=== PATIENT | female | born 1955 | race Caucasian/White ===

== ENCOUNTER → 2017-11-07 | Outpatient (CLI) | payer OTHER ==
[2016-10-28 21:40] VITALS: BP 130/63
--- NOTE | 2017-11-07 16:08 | MG ---
HISTORY: SCREENING Comparison: July 29, 2014 and November 06, 2016 FINDINGS: Bilateral CC and MLO projections of the right and left breast were obtained. Scattered fibroglandula r tissue is seen to be present without significant interval change. No suspicious architectural dist ortion, mass or clustered microcalcifications can be observed to suggest malignancy. No skin thicken ing or nipple retraction is appreciated. No pathological lymphadenopathy can be identified. Benign- appearing calcifications are noted within the right and left breast. IMPRESSION: NO RADIOGRAPHIC EVIDENCE OF MALIGNANCY. ACR CATEGORY 2 - benign findings. FOLLOW-UP EXAM 1 YEAR. Diagnostic CAD was utilized and reviewed. * 0 (ZERO) - ASSESSMENT INCOMPLETE; ADDITIONAL IMAGING IS NEEDED. * 1/1 (ONE) - NEGATIVE. * 2/II (TWO) - BENIGN FINDINGS. * 3/III (THREE) - PROBABLY BENIGN FINDING; SHORT INTERVAL FOLLOW-UP SUGGESTED. * 4/IV (FOUR) - SUSPICIOUS ABNORMALITY; BIOPSY SHOULD BE CONSIDERED. * 5/V - HIGHLY SUSPICIOUS OF MALIGNANCY; BIOPSY SHOULD BE PERFORMED. A NEGATIVE X-RAY REPORT SHOULD NOT DELAY BIOPSY IF A DOMINANT OR CLINICALLY SUSPICIOUS MASS IS PRESENT; 4 TO 8 PERCENT OF CANCERS ARE NOT IDENTIFIED BY X-RAY. A NEGA TIVE REPORT MAY REINFORCE THE CLINICAL IMPRESSION. ADENOSIS AND DENSE BREASTS MAY OBSCURE AN UNDERLY ING NEOPLASM. Reported By:
== END ==
LOC: RAD 10:37
PROVIDERS: ATTEND Internal Medicine
DX: Z12.31 Encounter for screening mammogram for malignant neoplasm of breast (principal)
CPT/HCPCS: 77067

== ENCOUNTER 2023-04-01 18:43 | Observation (INO) ==
--- NOTE | 2023-04-01 19:15 | EKG ---
Test Reason : cp Blood Pressure : */* mmHG Vent. Rate : 87 BPM Atrial Rate : 87 BPM P-R Int : 140 ms QRS Dur : 88 ms QT Int : 414 ms P-R-T Axes : 31 62 43 degrees QTc Int : 498 ms Normal sinus rhythm with sinus arrhythmia Prolonged QT Abnormal ECG No previous ECGs available Confirmed by Roberto Callejas ([id number]) on 04/03/2023 8:02:19 AM Referred By: Confirmed By: Roberto Callejas
--- NOTE | 2023-04-01 19:24 | DR.CP ---
HPI <Bernabe Sundar - Last Filed: 04/01/23 19:27> Time Seen Time Seen by Provider: 04/01/23 19:23 PCP Primary Care Physician: ITZ FONSECA Comment HPI Comment: c/o chest pain on rt side x 1 day intermittent no assoc diaphoresis or nausea or sob pt states she has hx of chf no pain in ER Complaint Chief Complaint:: PT COMPLAING OF CHEST PAIN SINCE AM, STATES AT TIMES IT FEELS LIKE INDGESTION BUT SHE CAN'T GET RID OF THE PAIN. PT DENIES AND RADIATING, NUMBNESS OR TINGLING. 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 Past Surgical History Comment: OVARIAN CYST REMOVAL Family History History of Family Medical Conditions: Yes Family Medical History: Diabetes Mellitus and Hypertension Social History Do you use any recreational Drugs:: No Travel Risk Coronavirus risk:travel/contact w/high risk person: No Has patient experienced Coronavirus symptoms: Yes Coronavirus symptoms experienced: Shortness of Breath Infectious screening Have you traveled outside the country in the last 6 months?: No Isolation: Standard ROS <Bernabe Carneylander Last Filed: 04/01/23 19:27> Review of Systems Respiratoy: No Symptoms Reported Cardiovascular: Chest Pain Gastrointestinal/Abdominal: No Symptoms Reported Genitourinary: No Symptoms Reported Musculoskeletal: No Symptoms Reported Integumentary: No Symptoms Reported All Other Systems: Reviewed and Negative PE <Bernabe Sundar Last Filed: 04/01/23 19:27> Vitals Vitals: Vital Signs Temperature 98.5 F Pulse Rate [Left Brachial] 82 Pulse Rate 103 Respiratory Rate 18 Respiratory Rate 20 Blood Pressure [Left Arm] 100/53 Blood Pressure 118/59 O2 Sat by Pulse Oximetry 98 O2 Sat by Pulse Oximetry 95 General General Appearance: In No Apparent Distress Head Head Exam: Normal Inspection Eyes Eye exam: Normal Appearance ENT ENT Exam: Normal Exam Chest Chest Inspection: Normal Inspection Respiratory Respiratory Exam: Normal Lung Sounds Bilat Cardiovascular Cardiovascular Exam: Regular Rate, Normal Rhythm and Normal Heart Sounds Abdominal Exam Abdominal Exam: Normal Bowel Sounds, Soft and Other (obese) Extremities Extremities Exam: Normal Inspection and Other (=1 edema mild ) Back Back Exam: Normal Inspection Psychiatric Psychiatric Exam: Normal Affect and Normal Mood <Jonathan Lai - Last Filed: 04/01/23 22:05> Vitals Vitals: Vital Signs Temperature 98.5 F Pulse Rate [Left Brachial] 82 Pulse Rate 103 Respiratory Rate 18 Respiratory Rate 20 Blood Pressure [Left Arm] 100/53 Blood Pressure 118/59 O2 Sat by Pulse Oximetry 98 O2 Sat by Pulse Oximetry 95 MDM <Bernabe Carneylander - Last Filed: 04/01/23 19:27> Differential Diagnosis Differential Diagnosis: Angina, Chest Wall Pain, CHF and Myocardial Infarction <Jonathan Lai - Last Filed: 04/01/23 22:05> Treatment Treatment: 2117 - 67 y/o female presents with chest pain, initially evaluated by Dr Kwok, signed over to me. Pt feeling better, having slight chest di scomfort, in no distress. Labs show normal troponin. Has an elevated BUN/Cr, last year number better. Admits to not eating , drinking well lately. D-dimer elvated, 2.08. Unable to do CTA at this time due to poor renal function. Recommend observation admission, will give SC lovenox for coverage. Follow troponin level, and attempt CTA in am if renal nnumbers better after IV hydration. Pt ok with game plan, will discuss with Dr Taylor. ROR <Bernabe Sundar - Last Filed: 04/01/23 19:27> Labs Reviewed 04/01/23 19:14 04/01/23 19:14 Laboratory: WBC 15.9 X10^3/uL (3.6-10.0) H 04/01/23 19:14 RBC 4.30 X10^6/uL (3.5-5.4) 04/01/23 19:14 Hgb 11.7 g/dL (12.0-16.0) L 04/01/23 19:14 Hct 36.2 % (36.0-47.0) 04/01/23 19:14 MCV 84.3 fL (80.0-100.0) 04/01/23 19:14 MCH 27.2 pg (27.0-34.0) 04/01/23 19:14 MCHC 32.3 g/dL (33.0-35.0) L 04/01/23 19:14 RDW 13.4 % (11.6-16.5) 04/01/23 19:14 Plt Count 303 X10^3/uL (150.0-450.0) 04/01/23 19:14 MPV 9.5 fL (7.4-11.0) 04/01/23 19:14 Neut % (Auto) 63.9 % (42.0-75.0) 04/01/23 19:14 Lymph % (Auto) 24.5 % (21.0-51.0) 04/01/23 19:14 [place] % (Auto) 8.8 % (0.0-13.0) 04/01/23 19:14 Eos % (Auto) 2.0 % (0.9-2.9) 04/01/23 19:14 Baso % (Auto) 0.8 % (0.2-1.0) 04/01/23 19:14 Neut # (Auto) 10.2 x10^3/uL (2.2-4.8) H 04/01/23 19:14 Lymph # (Auto) 3.9 X10^3/uL (1.3-2.9) H 04/01/23 19:14 [place] # (Auto) 1.4 x10^3/uL (0.3-0.8) H 04/01/23 19:14 Eos # (Auto) 0.3 x10^3/uL (0.0-0.2) H 04/01/23 19:14 Baso # (Auto) 0.1 X10^3/uL (0.0-0.1) 04/01/23 19:14 Absolute Nucleated RBC 0.0 /100WBC 04/01/23 19:14 D-Dimer 2.08 ug/ml (0.0-0.57) H 04/01/23 19:14 Sodium 138 mmol/L (136-145) 04/01/23 19:14 Corrected Sodium TNP 04/01/23 19:14 Potassium 3.5 mmol/L (3.5-5.1) 04/01/23 19:14 Chloride 102 mmol/L (98-107) 04/01/23 19:14 Carbon Dioxide 27.8 mmol/L (21-32) 04/01/23 19:14 BUN 22 mg/dL (7-18) H 04/01/23 19:14 Creatinine 2.53 mg/dL (0.55-1.02) H 04/01/23 19:14 Est GFR (MDRD) Af Amer 24 (>60) L 04/01/23 19:14 Est GFR (MDRD) Non-Af 20 (>60) L 04/01/23 19:14 Glucose 105 mg/dL (65-99) H 04/01/23 19:14 Calcium 8.7 mg/dL (8.5-10.1) 04/01/23 19:14 Corrected Calcium TNP 04/01/23 19:14 Total Bilirubin 0.40 mg/dL (0.2-1.0) 04/01/23 19:14 AST 18 Units/L (15-37) 04/01/23 19:14 ALT 11 Units/L (12-78) L 04/01/23 19:14 Alkaline Phosphatase 137 Units/L (46-116) H 04/01/23 19:14 Creatine Kinase 109 Units/L (26-192) 04/01/23 19:14 Troponin I High Sens 7.5 ng/L (4.0-60.0) 04/01/23 19:14 B-Natriuretic Peptide 16.9 pg/mL (0-79) 04/01/23 19:14 Total Protein 8.3 g/dL (6.4-8.2) H 04/01/23 19:14 Albumin 3.5 g/dL (3.4-5.0) 04/01/23 19:14 Globulin 4.8 g/dL (2.5-4.5) H 04/01/23 19:14 Albumin/Globulin Ratio 0.7 Ratio (1.1-2.1) L 04/01/23 19:14 SARS-CoV-2 (PCR) Negative (NEGATIVE) 04/01/23 19:05 Influenza Type A (PCR) Negative (NEGATIVE) 04/01/23 19:05 Influenza Type B (PCR) Negative (NEGATIVE) 04/01/23 19:05 RSV (PCR) Negative (NEGATIVE) 04/01/23 19:05 <Jonathan Lai - Last Filed: 04/01/23 22:05> Labs Reviewed Laboratory: WBC 15.9 X10^3/uL (3.6-10.0) H 04/01/23 19:14 RBC 4.30 X10^6/uL (3.5-5.4) 04/01/23 19:14 Hgb 11.7 g/dL (12.0-16.0) L 04/01/23 19:14 Hct 36.2 % (36.0-47.0) 04/01/23 19:14 MCV 84.3 fL (80.0-100.0) 04/01/23 19:14 MCH 27.2 pg (27.0-34.0) 04/01/23 19:14 MCHC 32.3 g/dL (33.0-35.0) L 04/01/23 19:14 RDW 13.4 % (11.6-16.5) 04/01/23 19:14 Plt Count 303 X10^3/uL (150.0-450.0) 04/01/23 19:14 MPV 9.5 fL (7.4-11.0) 04/01/23 19:14 Neut % (Auto) 63.9 % (42.0-75.0) 04/01/23 19:14 Lymph % (Auto) 24.5 % (21.0-51.0) 04/01/23 19:14 [place] % (Auto) 8.8 % (0.0-13.0) 04/01/23 19:14 Eos % (Auto) 2.0 % (0.9-2.9) 04/01/23 19:14 Baso % (Auto) 0.8 % (0.2-1.0) 04/01/23 19:14 Neut # (Auto) 10.2 x10^3/uL (2.2-4.8) H 04/01/23 19:14 Lymph # (Auto) 3.9 X10^3/uL (1.3-2.9) H 04/01/23 19:14 [place] # (Auto) 1.4 x10^3/uL (0.3-0.8) H 04/01/23 19:14 Eos # (Auto) 0.3 x10^3/uL (0.0-0.2) H 04/01/23 19:14 Baso # (Auto) 0.1 X10^3/uL (0.0-0.1) 04/01/23 19:14 Absolute Nucleated RBC 0.0 /100WBC 04/01/23 19:14 D-Dimer 2.08 ug/ml (0.0-0.57) H 04/01/23 19:14 Sodium 138 mmol/L (136-145) 04/01/23 19:14 Corrected Sodium TNP 04/01/23 19:14 Potassium 3.5 mmol/L (3.5-5.1) 04/01/23 19:14 Chloride 102 mmol/L (98-107) 04/01/23 19:14 Carbon Dioxide 27.8 mmol/L (21-32) 04/01/23 19:14 BUN 22 mg/dL (7-18) H 04/01/23 19:14 Creatinine 2.53 mg/dL (0.55-1.02) H 04/01/23 19:14 Est GFR (MDRD) Af Amer 24 (>60) L 04/01/23 19:14 Est GFR (MDRD) Non-Af 20 (>60) L 04/01/23 19:14 Glucose 105 mg/dL (65-99) H 04/01/23 19:14 Calcium 8.7 mg/dL (8.5-10.1) 04/01/23 19:14 Corrected Calcium TNP 04/01/23 19:14 Total Bilirubin 0.40 mg/dL (0.2-1.0) 04/01/23 19:14 AST 18 Units/L (15-37) 04/01/23 19:14 ALT 11 Units/L (12-78) L 04/01/23 19:14 Alkaline Phosphatase 137 Units/L (46-116) H 04/01/23 19:14 Creatine Kinase 109 Units/L (26-192) 04/01/23 19:14 Troponin I High Sens 7.5 ng/L (4.0-60.0) 04/01/23 19:14 B-Natriuretic Peptide 16.9 pg/mL (0-79) 04/01/23 19:14 Total Protein 8.3 g/dL (6.4-8.2) H 04/01/23 19:14 Albumin 3.5 g/dL (3.4-5.0) 04/01/23 19:14 Globulin 4.8 g/dL (2.5-4.5) H 04/01/23 19:14 Albumin/Globulin Ratio 0.7 Ratio (1.1-2.1) L 04/01/23 19:14 SARS-CoV-2 (PCR) Negative (NEGATIVE) 04/01/23 19:05 Influenza Type A (PCR) Negative (NEGATIVE) 04/01/23 19:05 Influenza Type B (PCR) Negative (NEGATIVE) 04/01/23 19:05 RSV (PCR) Negative (NEGATIVE) 04/01/23 19:05 Opioid <Bernabe Kwok - Last Filed: 04/01/23 19:27> Opioid Risk Tool Age (Volodymyr box if 16-45): No History of Preadolescent Sexual Abuse: No Total: 0 Total Score Risk Category: Low Risk Copyright: Paco BAUM predicting aberrant behaviors <Jonathan Lai - Last Filed: 04/01/23 22:05> Opioid Risk Tool Total: 0 Total Score Risk Category: Low Risk Discharge Plan Diagnosis Discharge Problem: Chest pain Discharge Plan Patient Disposition: ADMITTED INPATIENT Condition: Stable Orders to Discharge Patient Discharge Orders: Transfer (Routine); Ordered 04/01/23 Ordered By: Jonathan Lai
[2023-04-01 19:25] LABS: RED CELL DISTRIBUTION WIDTH 13.4 % (11.6-16.5)
[2023-04-01 19:29] LABS: BASOPHILS # (AUTO) 0.1 X10^3/uL (0.0-0.1); BASOPHILS % (AUTO) 0.8 % (0.2-1.0); EOSINOPHILS # (AUTO) 0.3 x10^3/uL (0.0-0.2); HEMATOCRIT 36.2 % (36.0-47.0); HEMOGLOBIN 11.7 g/dL (12.0-16.0); LYMPHOCYTES # (AUTO) 3.9 X10^3/uL (1.3-2.9); LYMPHOCYTES % (AUTO) 24.5 % (21.0-51.0); MEAN CORPUSCULAR HEMOGLOBIN 27.2 pg (27.0-34.0); MEAN CORPUSCULAR HGB CONC 32.3 g/dL (33.0-35.0); MEAN CORPUSCULAR VOLUME 84.3 fL (80.0-100.0); MEAN PLATELET VOLUME 9.5 fL (7.4-11.0); MONOCYTES # (AUTO) 1.4 x10^3/uL (0.3-0.8); MONOCYTES % (AUTO) 8.8 % (0.0-13.0); NEUTROPHILS # (AUTO) 10.2 x10^3/uL (2.2-4.8); NEUTROPHILS % (AUTO) 63.9 % (42.0-75.0); PLATELET COUNT 303 X10^3/uL (150.0-450.0); WHITE BLOOD COUNT 15.9 X10^3/uL (3.6-10.0)
[2023-04-01] MEDS ORDERED: ASPIRIN 81 MG CHEWTAB PO ONE (19:30)
[2023-04-01] MEDS ORDERED: ASPIRIN 81 MG CHEWTAB ONE (19:31)
[2023-04-01] MEDS ORDERED: CARAFATE ONE (19:31)
[2023-04-01] MEDS ORDERED: CARAFATE PO ONE (19:36)
[2023-04-01 19:39] LABS: ALANINE AMINOTRANSFERASE 11 Units/L (12-78); ALBUMIN 3.5 g/dL (3.4-5.0); ALKALINE PHOSPHATASE 137 Units/L (46-116); ASPARTATE AMINO TRANSFERASE 18 Units/L (15-37); BLOOD UREA NITROGEN 22 mg/dL (7-18); CALCIUM 8.7 mg/dL (8.5-10.1); CARBON DIOXIDE 27.8 mmol/L (21-32); CHLORIDE 102 mmol/L (98-107); CREATINE KINASE 109 Units/L (26-192); CREATININE 2.53 mg/dL (0.55-1.02); GLUCOSE 105 mg/dL (65-99); POTASSIUM 3.5 mmol/L (3.5-5.1); SODIUM 138 mmol/L (136-145); TOTAL PROTEIN 8.3 g/dL (6.4-8.2); eGFR NON BLACK RACES 20 (>60)
--- NOTE | 2023-04-01 20:38 | RAD ---
HISTORYchest pain, onset this AMSTUDYCHEST, 1 [facility] 2021TECHNIQUEChest radiographic imaging, AP portable projection, 1 imageFINDINGSNo cardiomegaly.No focal airspace disease.No pleural effusion.No pneumothorax.No acute osseous abnormality.IMPRESSIONNo imaging findings of acute cardiopulmonary disease.Electronically signed by: hCris Marin (Apr 01, 2023 20:36:50)
[2023-04-01] MEDS ORDERED: NS 1,000 ML IV 500 ML IV ONE (20:49)
[2023-04-01] MEDS ORDERED: NS 1,000 ML IV 1,000 ML ONE (20:50)
[2023-04-01] MEDS ORDERED: CARAFATE ORAL SUSP PO SCH (21:00)
[2023-04-01] MEDS ORDERED: CONSULT PHARMACY - POTASSIUM & MAGNESIUM XX SCH (22:09)
[2023-04-01] MEDS ORDERED: MORPHINE SULFATE INJ 4 MG IVP PRN (22:09)
[2023-04-01] MEDS ORDERED: TYLENOL 500 MG TAB EXTRA STRENGTH PO PRN (22:09)
[2023-04-01] MEDS: D5 1/2 NS 1,000 ML 1,000 ML IV SCH (22:32)
[2023-04-01 22:44] VITALS: BMI 39.3
[2023-04-01] MEDS: LOVENOX INJ 100 MG SYR SC SCH (22:52)
[2023-04-01] MEDS ORDERED: K-DUR TAB 20 MEQ PO SCH (23:00)
[2023-04-02] MEDS: D5 1/2 NS 1,000 ML 1,000 ML IV SCH ×2 (01:47→14:20)
[2023-04-02 05:14] LABS: BASOPHILS # (AUTO) 0.2 X10^3/uL (0.0-0.1); BASOPHILS % (AUTO) 1.2 % (0.2-1.0); EOSINOPHILS # (AUTO) 0.4 x10^3/uL (0.0-0.2); EOSINOPHILS % (AUTO) 2.9 % (0.9-2.9); HEMATOCRIT 33.8 % (36.0-47.0); LYMPHOCYTES # (AUTO) 3.2 X10^3/uL (1.3-2.9); LYMPHOCYTES % (AUTO) 23.2 % (21.0-51.0); MEAN CORPUSCULAR HEMOGLOBIN 27.1 pg (27.0-34.0); MEAN CORPUSCULAR HGB CONC 32.4 g/dL (33.0-35.0); MEAN CORPUSCULAR VOLUME 83.4 fL (80.0-100.0); MEAN PLATELET VOLUME 10.1 fL (7.4-11.0); MONOCYTES # (AUTO) 1.2 x10^3/uL (0.3-0.8); MONOCYTES % (AUTO) 8.3 % (0.0-13.0); NEUTROPHILS % (AUTO) 64.4 % (42.0-75.0); PLATELET COUNT 291 X10^3/uL (150.0-450.0); RED BLOOD COUNT 4.06 X10^6/uL (3.5-5.4); RED CELL DISTRIBUTION WIDTH 13.3 % (11.6-16.5); WHITE BLOOD COUNT 13.9 X10^3/uL (3.6-10.0)
[2023-04-02 05:25] LABS: CALCIUM 8.2 mg/dL (8.5-10.1); CARBON DIOXIDE 26.6 mmol/L (21-32); CREATININE 1.9 mg/dL (0.55-1.02); MAGNESIUM 2.3 mg/dL (2.0-2.9); POTASSIUM 3.6 mmol/L (3.5-5.1); TOTAL PROTEIN 7.4 g/dL (6.4-8.2)
[2023-04-02] MEDS ORDERED: CONSULT PHARMACY - POTASSIUM & MAGNESIUM XX SCH (06:00)
[2023-04-02] MEDS ORDERED: K-DUR TAB 20 MEQ PO SCH (06:00)
[2023-04-02] MEDS: LOVENOX INJ 100 MG SYR SC SCH (09:24)
--- NOTE | 2023-04-02 18:23 | DR.H&P ---
H&P - History & Physical for Day of: H&P Date: 04/01/23 - Chief Complaint Chief Complaint: CHEST PAIN - History of Present Illness History of Present Illness: IS A 67 YEAR OLD PATIENT OF OURS. SHE PRESENTED TO THE ER WITH COMPLAINTS OF RIGHT SIDED CHEST PAIN X 1 DAY. PATIENT REPORTS THAT PAIN FEELS LIKE HEARTBURN OR INDIGESTION, BUT NOTHING SHE DOES MAKES THE PAIN GO AWAY. SHE REPORTS THAT PAIN IS INTERMITTENT. SHE RATES IT A 4/10 ON ADMISSION. SHE DENIES RADIATNG, NUMBNESS, OR TINGLING. SHE HAS A PMH OF CHF, HTN, OVARIAN CYST REMOVAL. ON ARRIVAL TO THE HOSPITAL, HER VITALS WERE: 98.5-103-20-95%-118/59. LABS WERE OBTAINED. WBC 15.9, RBC 4.30, HGB 11.7, HCT 36.2, PLT COUNT 303, D-DIMER 2.08, SODIUM 138, POTASSIUM 3.5, CHLORIDE 102, CARBON DIOXIDE 27.8, BUN 22, CREATININE 2.53, GLUCOSE 105, CALCIUM 8.7, AST 18, ALT 11, ALK PHOS 137, CREATINE KINASE 109, TROPONIN 7.5, BNP 16.9, TOTAL PROTEIN 8.3, ALBUMIN 3.5. COVID, INFLUENZA, AND RSV WERE NEGATIVE. A CHEST XRAY WAS OBTAINED AND REVEALED: No imaging findings of acute cardiopulmonary disease. EKG REVEALED NORMAL SINUS RHYTHM WITH SINUS ARRHYTHMIA. HR 87 BPM. IN THE ER, SHE WAS GIVEN ASPIRIN 324MG PO X 1, CARAFATE 1G PO X 1, A NORMAL SALINE 1 LITER BOLUS, K-DUR 20MEQ PO X 1. SHE WAS ADMITTED TO THE HOSPITAL OBSERVATION STATUS FOR FURTHER EVALUATION AND TREATMENT OF CHEST PAIN RULE OUT ACUTE AL, VOLUME DEPLETION, ELEVATED D-DIMER. SHE WAS STARTED ON D51/2 NS AT 80 ML/HR, LOVENOX 100MG SC DAILY, MORPHINE SULFATE 4MG IV Q4H PRN, AND TYLENOL 1000MG PO Q6H PRN. OTHERWISE, WE WILL FOLLOW UP WITH AM LABS AND CONTINUE TO MONITOR. TIME SPENT ON CLINICAL ASSESSMENT, REVIEWING LABS AND IMAGING, DECISION MAKING, AND DOCUMENTATION GREATER THAN 75 MINUTES. 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 - Family History Family Medical History: Diabetes Mellitus, Cancer, Hypertension - Social History Does any household member use tobacco: No Alcohol Use: None Drug Use: None - Review of Systems Constitutional: Weakness Eyes: No Symptoms Reported ENT: No Symptoms Reported Respiratory: SOB with Excertion Cardiovascular: Chest Pain Gastrointestinal: No Symptoms Reported Genitourinary: No Symptoms Reported Musculoskeletal: No Symptoms Reported Skin: No Symptoms Reported Neurological: Weakness - Physical Exam Vital Signs: Vital Signs Temperature 98.2 F Temperature 97.8 F Pulse Rate [Left Brachial] 83 Pulse Rate [Left Brachial] 74 Respiratory Rate 20 Respiratory Rate 20 Blood Pressure [Left Arm] 115/73 Blood Pressure [Left Arm] 113/58 O2 Sat by Pulse Oximetry 96 O2 Sat by Pulse Oximetry 96 Oriented: Normal Eyes: Normal Ear: Normal Nose: Normal Throat: Normal Respiratory: Diminished Throughout Cardiovascular: Normal : Normal Auscultation: Bowel Sounds: Normal Palpation: Normal Tenderness: Normal Skin: Decreased [place] Musculoskeletal: Normal Psychiatric: Normal Mood Description: Calm Affect: Normal Speech Pattern: Clear - Assessment/Plan (1) Chest pain, rule out acute myocardial infarction Status: Acute Plan: ADMIT, REPEAT CARDIAC ENZYMES AND EKGS, SUPPLEMENTAL OXYGEN, D51/2 NS AT 80 ML/HR, LOVENOX 100MG SC DAILY, MORPHINE SULFATE 4MG IV Q4H PRN, AND TYLENOL 1000MG PO Q6H PRN. MONITOR DAILY LABS (2) Dehydration Status: Acute Plan: IV FLUIDS (3) Elevated d-dimer Status: Acute Plan: OBTAIN CHEST CTA TO RULE OUT PE WHEN KIDNEY FUNCTION IS BETTER (4) HTN (hypertension) Qualifiers: Hypertension type: primary hypertension Qualified Code(s): I10 - Essential (primary) hypertension Status: Chronic - Allergies Allergies/Adverse Reactions: Allergies Allergy/AdvReac Type Severity Reaction Status Date / Time No Known Drug Allergies Allergy Verified 06/08/20 11:01
[2023-04-03] MEDS: D5 1/2 NS 1,000 ML 1,000 ML IV SCH ×2 (01:22→13:08)
[2023-04-03] MEDS ORDERED: MAALOX or MYLANTA PO PRN (04:17)
[2023-04-03] MEDS: LOVENOX INJ 100 MG SYR SC SCH (08:51)
[2023-04-03 08:59] LABS: BASOPHILS # (AUTO) 0.1 X10^3/uL (0.0-0.1); EOSINOPHILS # (AUTO) 0.3 x10^3/uL (0.0-0.2); EOSINOPHILS % (AUTO) 3.3 % (0.9-2.9); HEMATOCRIT 35.3 % (36.0-47.0); HEMOGLOBIN 11.3 g/dL (12.0-16.0); LYMPHOCYTES # (AUTO) 2.6 X10^3/uL (1.3-2.9); LYMPHOCYTES % (AUTO) 25.7 % (21.0-51.0); MEAN CORPUSCULAR HEMOGLOBIN 27.1 pg (27.0-34.0); MEAN CORPUSCULAR HGB CONC 32.1 g/dL (33.0-35.0); MEAN CORPUSCULAR VOLUME 84.3 fL (80.0-100.0); MEAN PLATELET VOLUME 9.9 fL (7.4-11.0); MONOCYTES # (AUTO) 0.7 x10^3/uL (0.3-0.8); MONOCYTES % (AUTO) 6.6 % (0.0-13.0); NEUTROPHILS # (AUTO) 6.5 x10^3/uL (2.2-4.8); NEUTROPHILS % (AUTO) 63.4 % (42.0-75.0); PLATELET COUNT 268 X10^3/uL (150.0-450.0); RED BLOOD COUNT 4.19 X10^6/uL (3.5-5.4); RED CELL DISTRIBUTION WIDTH 13.4 % (11.6-16.5); WHITE BLOOD COUNT 10.2 X10^3/uL (3.6-10.0)
[2023-04-03 09:30] LABS: BLOOD UREA NITROGEN 13 mg/dL (7-18); CARBON DIOXIDE 39.5 mmol/L (21-32); CHLORIDE 99 mmol/L (98-107); COR NA(FOR HYPERGLY) 141 mmol/L (136-145); CREATININE 0.98 mg/dL (0.55-1.02); GLUCOSE 181 mg/dL (65-99); POTASSIUM 4.5 mmol/L (3.5-5.1); SODIUM 139 mmol/L (136-145); eGFR NON BLACK RACES 60 (>60)
[2023-04-03 09:43] LABS: ALANINE AMINOTRANSFERASE 9 Units/L (12-78); ALBUMIN 3.1 g/dL (3.4-5.0); ALKALINE PHOSPHATASE 126 Units/L (46-116); ASPARTATE AMINO TRANSFERASE 18 Units/L (15-37); COR CA(FOR HYPOALB) 9.7 mg/dL (8.5-10.1); TOTAL PROTEIN 7.8 g/dL (6.4-8.2)
[2023-04-03] MEDS ORDERED: OMNIPAQUE 350 mg/mL 100 mL BTL 100 ML ONE (11:32)
--- NOTE | 2023-04-03 12:25 | PCM.PROG ---
Progress Note - Progress Note for Day of Date of Exam: 04/03/23 - Subjective Subjective: IS CURRENTLY OBSERVATION STATUS FOR TREATMENT OF CHEST PAIN RULE OUT ACUTE CT, DEHYDRATION, ELEVATED D-DIMER, AND HTN. TODAY, PATIENT IS ALERT AND ORIENTED, SITTING ON THE SIDE OF THE BED ON MORNING ROUNDS. SHE CONTINUES TO COMPLAIN OF INTERMITTENT CHEST PAIN THIS MORNING. SHE ALSO COMPLAINS OF SHORTNESS OF BREATH AT TIMES. SOB HAS BEEN WORSE ON EXERTION. NURSING STAFF REPORTS THAT SHE HAS HAD AN UNEVENTFUL NIGHT. ON EXAMINATION TODAY, HEART IS REGULAR IN RATE AND RHYTHM. BILATERAL LUNGS ARE NOTED WITH DIMINISHED LUNG SOUNDS THROUGHOUT. ABDOMEN IS ROUND, SOFT, AND NON-TENDER WITH NORMAL BOWEL SOUNDS NOTED IN ALL QUADRANTS. GOOD MOVEMENT NOTED TO UPPER AND LOWER EXTREMITIES. HER VITALS THIS MORNING ARE: 97.5-88-18-97%-140/62. LABS WERE OBTAINED. WBC 10.2, RBC 4.19, HGB 11.3, HCT 35.3, PLT COUNG 268, SODIUM 139, POTASSIUM 4.5, CHLORIDE 99, CARBON DIOXIDE 39.5, BUN 13, CREATININE 0.98, GLUCOSE 181, CALCIUM 9.0, AST 18, ALT 9, ALK PHOS 126, TOTAL PROTEIN 7.8, ALBUMIN 3.1. SHE IS CURRENTLY RECEIVING D51/2 NS AT 80 ML/HR, LOVENOX 100MG SC DAILY, MORPHINE SULFATE 4MG IV Q4H PRN, AND TYLENOL 1000MG PO Q6H PRN. WE WILL OBTAIN A CHEST CTA TO RULE OUT PE THIS MORNING. OTHERWISE, WE WILL FOLLOW UP WITH AM LABS AND CONTINUE TO MONITOR. TIME SPENT ON CLINICAL ASSESSMENT, REVIE WING LABS AND IMAGING, DECISION MAKING, AND DOCUMENTATION GREATER THAN 45 MINUTES. - Past Medical Family Social History Past Med/Fam/Surg Hx: No changes since H&P Allergies: Allergies No Known Drug Allergies Allergy (Verified 06/08/20 11:01) - Review of Systems ROS: No change since H&P - Vital Signs and I&O's Vital Signs: Vital Signs Temperature 97.5 F Pulse Rate [Left Brachial] 88 Respiratory Rate 18 Blood Pressure [Right Arm] 140/62 O2 Sat by Pulse Oximetry 97 Intake and Output: Intake & Output 04/01/23 04/02/23 04/03/23 04/04/23 11:59 11:59 11:59 11:59 Intake Total 1485 / 1485 2800 / 2800 Balance 1485 / 1485 2800 / 2800 - Physical Exam Oriented: Normal Eyes: Normal Ear: Normal Nose: Normal Throat: Normal Respiratory: Generalized, Diminished Cardiovascular: Normal : Normal Auscultation: Bowel Sounds: Normal Palpation: Normal Tenderness: Normal Skin: Normal Musculoskeletal: Normal Psychiatric: Normal Mood Description: Calm Affect: Normal Speech Pattern: Clear, Appropriate - Laboratory and Diagnostics Result Diagrams: 04/03/23 08:27 04/03/23 08:27 Labs: Laboratory WBC 10.2 X10^3/uL (3.6-10.0) H 04/03/23 08:27 RBC 4.19 X10^6/uL (3.5-5.4) 04/03/23 08:27 Hgb 11.3 g/dL (12.0-16.0) L 04/03/23 08:27 Hct 35.3 % (36.0-47.0) L 04/03/23 08: MCV 84.3 fL (80.0-100.0) 04/03/23 08: MCH 27.1 pg (27.0-34.0) 04/03/23 08: MCHC 32.1 g/dL (33.0-35.0) L 04/03/23 08: RDW 13.4 % (11.6-16.5) 04/03/23 08: Plt Count 268 X10^3/uL (150.0-450.0) 04/03/23 08: MPV 9.9 fL (7.4-11.0) 04/03/23 08:27 Neut % (Auto) 63.4 % (42.0-75.0) 04/03/23 08: Lymph % (Auto) 25.7 % (21.0-51.0) 04/03/23 08: [place] % (Auto) 6.6 % (0.0-13.0) 04/03/23 08:27 Eos % (Auto) 3.3 % (0.9-2.9) H 04/03/23 08:27 Baso % (Auto) 1.0 % (0.2-1.0) 04/03/23 08:27 Neut # (Auto) 6.5 x10^3/uL (2.2-4.8) H 04/03/23 08:27 Lymph # (Auto) 2.6 X10^3/uL (1.3-2.9) 04/03/23 08:27 [place] # (Auto) 0.7 x10^3/uL (0.3-0.8) 04/03/23 08:27 Eos # (Auto) 0.3 x10^3/uL (0.0-0.2) H 04/03/23 08:27 Baso # (Auto) 0.1 X10^3/uL (0.0-0.1) 04/03/23 08:27 Absolute Nucleated RBC 0.1 /100WBC 04/03/23 08:27 D-Dimer 2.08 ug/ml (0.0-0.57) H 04/01/23 19:14 Sodium 139 mmol/L (136-145) 04/03/23 08:27 Corrected Sodium 141 mmol/L (136-145) 04/03/23 08:27 Potassium 4.5 mmol/L (3.5-5.1) 04/03/23 08:27 Chloride 99 mmol/L (98-107) 04/03/23 08:27 Carbon Dioxide 39.5 mmol/L (21-32) H 04/03/23 08:27 BUN 13 mg/dL (7-18) 04/03/23 08:27 Creatinine 0.98 mg/dL (0.55-1.02) 04/03/23 08:27 Est GFR (MDRD) Af Amer > 60 (>60) 04/03/23 08:27 Est GFR (MDRD) Non-Af 60 (>60) 04/03/23 08:27 Glucose 181 mg/dL (65-99) H 04/03/23 08:27 POC Glucose (mg/dL) 115 mg/dL (65-99) H 04/02/23 05:17 Calcium 9.0 mg/dL (8.5-10.1) 04/03/23 08:27 Corrected Calcium 9.7 mg/dL (8.5-10.1) 04/03/23 08:27 Magnesium 2.3 mg/dL (2.0-2.9) 04/02/23 04:38 Total Bilirubin 0.30 mg/dL (0.2-1.0) 04/03/23 08:27 AST 18 Units/L (15-37) 04/03/23 08:27 ALT 9 Units/L (12-78) L 04/03/23 08:27 Alkaline Phosphatase 126 Units/L (46-116) H 04/03/23 08:27 Creatine Kinase 109 Units/L (26-192) 04/01/23 19:14 Troponin I High Sens 7.9 ng/L (4.0-60.0) 04/01/23 22:18 B-Natriuretic Peptide 16.9 pg/mL (0-79) 04/01/23 19:14 Total Protein 7.8 g/dL (6.4-8.2) 04/03/23 08:27 Albumin 3.1 g/dL (3.4-5.0) L 04/03/23 08:27 Globulin 4.7 g/dL (2.5-4.5) H 04/03/23 08:27 Albumin/Globulin Ratio 0.7 Ratio (1.1-2.1) L 04/03/23 08:27 SARS-CoV-2 (PCR) Negative (NEGATIVE) 04/01/23 19:05 Influenza Type A (PCR) Negative (NEGATIVE) 04/01/23 19:05 Influenza Type B (PCR) Negative (NEGATIVE) 04/01/23 19:05 RSV (PCR) Negative (NEGATIVE) 04/01/23 19:05 - Plan (1) Chest pain, rule out acute myocardial infarction Status: Acute Plan: OBTAIN CHEST CTA TODAY. SUPPLEMENTAL OXYGEN, D51/2 NS AT 80 ML/HR, LOVENOX 100MG SC DAILY, MORPHINE SULFATE 4MG IV Q4H PRN, AND TYLENOL 1000MG PO Q6H PRN. MONITOR DAILY LABS (2) Dehydration Status: Acute Plan: IV FLUIDS (3) Elevated d-dimer Status: Acute Plan: OBTAIN CHEST CTA TO RULE OUT PE TODAY (4) HTN (hypertension) Status: Chronic Qualifiers: Hypertension type: primary hypertension Qualified Code(s): I10 - Essential (primary) hypertension Plan: CONTINUE TO MONITOR
[2023-04-03] MEDS: PROTONIX INJ 40 MG VIAL IVP SCH ×2 (13:08→20:15)
[2023-04-03] MEDS: PEPCID 20 MG VIAL 20 MG in NS 50 ML IV 50 ML IV SCH ×2 (13:08→20:15)
--- NOTE | 2023-04-03 14:01 | CT ---
HISTORYelev d-dimerSTUDYCTA OF THE CHEST WITH CONTRASTCOMPARISONChest x-ray from April 01TECHNIQUEAxial CT was performed from the thoracic inlet to the upper abdomen with an arterial phase IV contrast bolus. The axial sequences are reconstructed with multiplaner reformats;volume rendered MIP and/or 3D reconstruction was generated from the original axial dataset.FINDINGSMild left ventricular dilation and wall hypertrophy. Trace dependent pleural and pericardial effusions. No enlarged mediastinal, hilar or axillary lymph nodes. Within limitations of motion artifact, which degrades the quality of the exam, no pulmonary thromboembolism can be identified, and the thoracic aorta caliber is normal.No consolidating pulmonary infiltrates are demonstrated. No bronchiectasis, honeycombing or disseminated fibrotic lung change. Minor compression related subpleural fibroatelectatic changes of the medial right lower lobe related to spondylitic osteophytes of the thoracic spine. Minor subpleural reticulation of the right lung.A few scattered pulmonary nodules are demonstrated and are nonspecific in etiology. For example in the right upper lobe on image 50, there is 6 mm nodule. In the left upper lobe there is a subpleural nodule measuring 7.5 mm, image 75. There several fissure based nodules which are likely of lymphatic origin measuring less than 1 cm. Subpleural nodules are also demonstrated within the right lower lobe best seen on the coronal reconstruction for example image 122 and 126 measuring 5.5 mm.Limited imaging of the upper abdomen reveals no acute abnormalities. There is severe generalized hepatic steatosis. A nonobstructing calculus of the left kidney measures 5.5 mm. There is an exophytic left renal cyst measuring 1.7 cm. There is increased density within the lumen of the gallbladder suggesting cholelithiasis. No aggressive bony lesions or acute osseous abnormalities.IMPRESSIONWithin limitations of motion artifact, no pulmonary thromboembolism or acute aortic pathology is identified.Mild left ventricular dilation and wall hypertrophy. Trace pericardial and trace dependent pleural effusionsMedial segment right lower lobe subpleural fibroatelectatic lung changes with no acute infiltrates otherwise notedScattered array of pulmonary nodules measuring less than 8 mm with largest measuring 7.5 mm. Routine follow-up CT of the chest is suggested 6 months for confirmation of stability.Cholelithiasis without cholecystitisNonobstructing left renal calculus and left renal cystDiffuse fatty infiltration of the pancreas.Radiation dose reduction was achieved through individualized adjustment of kVP and/or mA, through adaptive statistical iterative reconstruction, and/or through automated tube current modulation.Electronically signed by: DEANNA AREVALO (Apr 03, 2023 13:55:20)
[2023-04-03 20:54] VITALS: RESP 20
[2023-04-04] MEDS: D5 1/2 NS 1,000 ML 1,000 ML IV SCH (02:45)
--- NOTE | 2023-04-04 05:50 | RAD ---
HISTORYSOB Relevant Clinical InformationSTUDYCHEST, 1 [id number]/30/2023FINDINGSThe trachea is midline. The cardiac silhouette is unremarkable. The lungs are clear without focal infiltrate or effusion. The bony thorax is unremarkable.IMPRESSIONNo acute cardiopulmonary findings .Electronically signed by: Elpidio Marie (Apr 04, 2023 05:48:40)
[2023-04-04 06:33] LABS: BASOPHILS # (AUTO) 0.1 X10^3/uL (0.0-0.1); BASOPHILS % (AUTO) 0.6 % (0.2-1.0); EOSINOPHILS # (AUTO) 0.4 x10^3/uL (0.0-0.2); EOSINOPHILS % (AUTO) 3.6 % (0.9-2.9); HEMATOCRIT 35.4 % (36.0-47.0); HEMOGLOBIN 11.6 g/dL (12.0-16.0); LYMPHOCYTES # (AUTO) 2.4 X10^3/uL (1.3-2.9); LYMPHOCYTES % (AUTO) 23.6 % (21.0-51.0); MEAN CORPUSCULAR HEMOGLOBIN 27.5 pg (27.0-34.0); MEAN CORPUSCULAR HGB CONC 32.7 g/dL (33.0-35.0); MEAN CORPUSCULAR VOLUME 84.2 fL (80.0-100.0); MEAN PLATELET VOLUME 10.2 fL (7.4-11.0); MONOCYTES % (AUTO) 9.5 % (0.0-13.0); NEUTROPHILS # (AUTO) 6.3 x10^3/uL (2.2-4.8); NEUTROPHILS % (AUTO) 62.7 % (42.0-75.0); PLATELET COUNT 275 X10^3/uL (150.0-450.0); RED CELL DISTRIBUTION WIDTH 13.1 % (11.6-16.5); WHITE BLOOD COUNT 10.1 X10^3/uL (3.6-10.0)
[2023-04-04 06:56] LABS: CARBON DIOXIDE 29.2 mmol/L (21-32); CREATININE 1.56 mg/dL (0.55-1.02)
[2023-04-04 07:34] LABS: ALBUMIN 3.1 g/dL (3.4-5.0); COR CA(FOR HYPOALB) 9.7 mg/dL (8.5-10.1); TOTAL PROTEIN 7.7 g/dL (6.4-8.2)
[2023-04-04] MEDS: PROTONIX INJ 40 MG VIAL IVP SCH (08:13)
[2023-04-04] MEDS: LOVENOX INJ 100 MG SYR SC SCH (08:13)
[2023-04-04] MEDS: PEPCID 20 MG VIAL 20 MG in NS 50 ML IV 50 ML IV SCH (08:13)
[2023-04-04 08:54] VITALS: BP 136/66; PULSE 82; TEMP 97.8; O2SAT 98
[2023-04-05] MEDS ORDERED: PEPCID 20 MG VIAL 20 MG in NS 50 ML IV 50 ML IV SCH (09:00)
== END 2023-04-04 11:20 | disposition home or self-care (01) ==
LOC: MED/SURG 18:43 → ER 18:43 → MED/SURG 22:04
PROVIDERS: ADMIT Internal Medicine; ATTEND Internal Medicine
DX: E86.0 Dehydration; Z20.822 Contact with and (suspected) exposure to COVID-19; R79.1 Abnormal coagulation profile; R07.89 Other chest pain; R06.02 Shortness of breath; I10 Essential (primary) hypertension